=== PATIENT | male | born 1990 | race Two or more races ===

== ENCOUNTER 2018-03-23 12:14 | Emergency (ER) | payer MEDICAID ==
[~2018-03-23] VITALS: Ht 167.6 cm; Wt 81.6 kg
--- NOTE | 2018-03-23 12:20 | NUR ---
PT BIB [facility] C/O PALPITATIONS AND FAST HR, SUDDEN ONSET WHILE WALKING AROUND AT WORK. DENIES EXERTION. RESP EVEN UNLABORED. SKIN WARM DRY. A/OX4. DENIES PAIN BUT PALPITATIONS PERSIST. IN ER BED 11 ON MONITOR.
[2018-03-23] MEDS ORDERED: LORAZEPAM INJ 2 MG/ML VIAL ONE (12:39)
[2018-03-23 12:48] LABS: BASOPHILS % (AUTO) 0.1 % (0.0-2.0); EOSINOPHILS % (AUTO) 3.4 % (0.0-6.0); HEMATOCRIT 48 % (39-51); HEMOGLOBIN 16.5 g/dL (13.5-17.5); LYMPHOCYTES # (AUTO) 2.4 /CMM (0.8-4.8); LYMPHOCYTES % (AUTO) 33.6 % (20.0-44.0); MEAN CORPUSCULAR HGB CONC 34 g/dl (31.0-36.0); MEAN CORPUSCULAR VOLUME 91 fL (80-96); MONOCYTES # (AUTO) 0.5 /CMM (0.1-1.30); MONOCYTES % (AUTO) 6.7 % (2.0-12.0); NEUTROPHILS # (AUTO) 3.9 /CMM (1.8-8.9); NEUTROPHILS % (AUTO) 56.2 % (43.0-81.0); PLATELET COUNT (AUTO) 280 /CMM (150-450); RDW COEFFICIENT OF VARIATION 11.8 (11.5-15.0); RED BLOOD CELL COUNT(AUTO) 5.28 MIL/uL (4.5-6.0)
[2018-03-23 12:59] LABS: CALCIUM, SERUM 9.1 mg/dL (8.5-10.1); CARBON DIOXIDE 29 mmol/L (21-32); CHLORIDE 104 mmol/L (98-107); GLUCOSE 148 mg/dL (74-106); POTASSIUM 3.7 mmol/L (3.5-5.1); SODIUM SERUM 141 mmol/L (136-145); UREA NITROGEN, BLOOD 11 mg/dL (7-18)
[2018-03-23] MEDS ORDERED: IV NS 0.9% 1,000 ML BAG IV ONE (13:00)
[2018-03-23] MEDS ORDERED: LORAZEPAM INJ 2 MG/ML VIAL IV ONE (13:00)
[2018-03-23 13:09] LABS: TROPONIN I < 0.017 ng/mL (0.00-0.056)
--- NOTE | 2018-03-23 14:12 | NUR ---
RESTING QUIETLY, ASLEEP BUT EASILY AROUSABLE, NAD NOTED.
--- NOTE | 2018-03-23 15:47 | NUR ---
IV removed. Catheter intact and site benign. Pressure and 4x4 applied to site. No bleeding noted. Patient discharged to home in stable condition. Written and verbal after care instructions given. Patient verbalizes understanding of instruction. [facility]BU[employer] GAIT
[2018-03-23 15:48] VITALS: BP 112/60
== END 2018-03-23 15:49 | disposition home or self-care (01) ==
LOC: ER 12:17
DX: R00.2 Palpitations (principal); R42 Dizziness and giddiness; Z90.89 Acquired absence of other organs; Z60.2 Problems related to living alone
CPT/HCPCS: 36415; 71045; 80048; 84484; 85025; 85378; 93005 ×2; 96361; 96374; 99285; A4606; J2060; J7030; Z7610